=== PATIENT | male | born 1995 | race American Indian/Alaskan Native ===

== ENCOUNTER 2017-03-07 18:40 | Emergency (ER) | payer OTHER ==
[2017-03-07 18:47] VITALS: BP 106/83
[2017-03-07] MEDS ORDERED: NORCO 5/325 PO ONE (19:57)
[2017-03-07] MEDS ORDERED: BOOSTRIX IM ONE (19:57)
[2017-03-07] MEDS ORDERED: TRIPLE ANTIBIOTIC TP ONE (19:58)
[2017-03-07] MEDS ORDERED: ZOFRAN ODT PO ONE (19:58)
[2017-03-07] MEDS ORDERED: XYLOCAINE 2%/EPI 1:100,000 INFILTRATI ONE (19:58)
[2017-03-07] MEDS ORDERED: XYLOCAINE 2%/ EPI 1:200,000 INFILTRATI ONE ×2 (20:18→21:50)
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
--- NOTE | 2017-03-07 22:14 | XRay Report ---
FINAL REPORT EXAM: XR HAND 3+V RT HISTORY: multiple lacerations TECHNIQUE: Four views right hand PRIORS: None. FINDINGS: No fracture is identified. No dislocation seen. Joint spaces are within normal limits. No erosive bony change identified. Carpal bones maintain normal alignment. Distal radius and ulna are intact. Multiple soft tissue lacerations with soft tissue gas seen distal forearm and wrist. No radiopaque foreign bodies identified IMPRESSION: Soft tissue lacerations distal forearm and wrist No fracture or radiopaque foreign body seen
== END 2017-03-07 21:58 | disposition home or self-care (01) ==
LOC: ED 18:40
DX: S61.411A Laceration without foreign body of right hand, initial encounter (principal); W25.XXXA Contact with sharp glass, initial encounter; Y93.89 Activity, other specified; Y99.8 Other external cause status; Y92.098 Other place in other non-institutional residence as the place of occurrence of the external cause
CPT/HCPCS: 90471; 90715; A6250; Q0162